=== PATIENT | female | born 1975 | race Two or more races ===

== ENCOUNTER 2019-01-19 20:48 | Emergency (ER) | payer MEDICAID ==
[~2019-01-19] VITALS: Ht 172.7 cm; Wt 77.1 kg
[2019-01-19 21:18] VITALS: BP 121/76
[2019-01-20] MEDS ORDERED: TETRACAINE HCL 0.5% OPTH(EYE) SOLN 4ML EACHEYE ONE
[2019-01-20] MEDS ORDERED: FLUORESCEIN SOD 1 MG TEST STRIP EACHEYE ONE
== END 2019-01-20 01:20 | disposition home or self-care (01) ==
LOC: ER 21:01
DX: T15.02XA Foreign body in cornea, left eye, initial encounter (principal); T15.01XA Foreign body in cornea, right eye, initial encounter; Z88.0 Allergy status to penicillin; Y04.2XXA Assault by strike against or bumped into by another person, initial encounter; Y93.89 Activity, other specified; Y92.89 Other specified places as the place of occurrence of the external cause; Y99.8 Other external cause status
CPT/HCPCS: 65220

== ENCOUNTER 2019-01-26 10:26 | Emergency (ER) | payer MEDICAID ==
[~2019-01-26] VITALS: Ht 157.5 cm; Wt 77.1 kg
[2019-01-26 10:36] VITALS: BP 114/66
[2019-01-26] MEDS ORDERED: FLUORESCEIN SOD 1 MG TEST STRIP OP ONE (11:15)
[2019-01-26] MEDS ORDERED: TETRACAINE HCL 0.5% OPTH(EYE) SOLN 4ML EACHEYE ONE (11:15)
== END 2019-01-26 11:39 | disposition home or self-care (01) ==
LOC: ER 10:26
DX: S05.02XA Injury of conjunctiva and corneal abrasion without foreign body, left eye, initial encounter (principal); X58.XXXA Exposure to other specified factors, initial encounter; Y93.89 Activity, other specified; Y92.89 Other specified places as the place of occurrence of the external cause; Y99.8 Other external cause status